=== PATIENT | female | born 1960 | race Caucasian/White ===

== ENCOUNTER 2017-09-18 16:03 | Emergency (ER) | payer OTHER ==
[2017-09-18] MEDS: IBUPROFEN 600 MG TAB PO (20:06)
[2017-09-18] MEDS: HYDROCODONE/APAP (5/325) TAB PO (20:06)
== END 2017-09-18 22:12 | disposition home or self-care (01) ==
LOC: FTE 16:03
DX: S82.892A Other fracture of left lower leg, initial encounter for closed fracture (principal); F17.210 Nicotine dependence, cigarettes, uncomplicated; W01.0XXA Fall on same level from slipping, tripping and stumbling without subsequent striking against object, initial encounter; Y92.9 Unspecified place or not applicable; Z96.651 Presence of right artificial knee joint
CPT/HCPCS: 29515; 73610; 99283-25

== ENCOUNTER 2018-06-17 09:30 | Day surgery (SDC) | payer OTHER ==
[2018-06-17] MEDS ORDERED: PROPOFOL 60 ML (11:59)
== END 2018-06-17 12:55 | disposition home or self-care (01) ==
LOC: GIL 09:30
DX: Z12.11 Encounter for screening for malignant neoplasm of colon (principal); D12.8 Benign neoplasm of rectum; K57.30 Diverticulosis of large intestine without perforation or abscess without bleeding; K64.4 Residual hemorrhoidal skin tags; I10 Essential (primary) hypertension; E03.9 Hypothyroidism, unspecified; J45.909 Unspecified asthma, uncomplicated
CPT/HCPCS: 45385; 88305